=== PATIENT | male | born 2000 | race African-American/Black ===

== ENCOUNTER 2023-11-06 10:27 | Inpatient (IN) | payer OTHER ==
[~2023-11-06] VITALS: Ht 172.7 cm; Wt 59.3 kg
[2023-11-06] MEDS ORDERED: WELLTAB38 PO (10:55)
[2023-11-06] MEDS ORDERED: LEXA1TAB2 PO (10:55)
[2023-11-06] MEDS ORDERED: ZYPR2.5T2 PO (10:55)
[2023-11-06 11:26] LABS: HEMATOCRIT 47.9 % (42.0-52.0); HEMOGLOBIN 16.2 g/dl (13.5-17.5); MEAN CORPUSCULAR HEMOGLOBIN 29.7 pg (27.0-33.0); MEAN CORPUSCULAR HGB CONC 33.8 g/dl (32.0-36.5); MEAN CORPUSCULAR VOLUME 87.7 fl (80.0-96.0); PLATELET COUNT, AUTOMATED 268 10^3/uL (150-450); RED BLOOD COUNT 5.46 10^6/uL (4.30-6.10); WHITE BLOOD COUNT 4.3 10^3/uL (4.0-10.0)
[2023-11-06 11:55] LABS: ETHYL ALCOHOL (ETHANOL) < 0.003 % (0.000-0.010)
[2023-11-06 11:57] LABS: ALBUMIN 4.7 G/DL (3.2-5.2); ALKALINE PHOSPHATASE 74 U/L (46-116); ALT/SGPT 37 U/L (7.0-40); AST/SGOT 22 U/L (<34); BILIRUBIN,DIRECT 0.7 MG/DL (<0.4); BILIRUBIN,TOTAL 1.7 MG/DL (0.3-1.2); BLOOD UREA NITROGEN 11 MG/DL (9-23); CALCIUM LEVEL 9.8 MG/DL (8.5-10.1); CARBON DIOXIDE LEVEL 30 MMOL/L (20-31); CHLORIDE LEVEL 103 MMOL/L (98-107); CREATININE FOR GFR 0.71 MG/DL (0.70-1.30); GLOMERULAR FILTRATION RATE > 60.0 (>60); GLUCOSE, FASTING 89 MG/DL (60-100); POTASSIUM SERUM 3.6 MMOL/L (3.5-5.1); SODIUM LEVEL 138 MMOL/L (136-145); TOTAL PROTEIN 7.8 G/DL (5.7-8.2)
[2023-11-06 11:59] LABS: THYROID STIMULATING HORMONE 1.132 uIU/ML (0.55-4.78)
[2023-11-06 12:00] LABS: SALICYLATE LEVEL < 3.0 MG/DL (<30)
[2023-11-06] MEDS ORDERED: MAALOX 30 ML SUSP *UDC PO PRN (13:05)
[2023-11-06] MEDS ORDERED: MOM 30ML SUSPENSION UDC PO PRN (13:05)
[2023-11-06] MEDS ORDERED: IBUPROFEN 400MG TAB PO PRN (13:05)
[2023-11-06 13:08] LABS: AMPHETAMINES LEVEL URINE NEGATIVE (NEGATIVE); BARBITURATES URINE NEGATIVE (NEGATIVE); BENZODIAZEPINES URINE NEGATIVE (NEGATIVE); COCAINE METABOLITE URINE NEGATIVE (NEGATIVE); METHADONE URINE NEGATIVE (NEGATIVE); OPIATES URINE NEGATIVE (NEGATIVE); PHENCYCLIDINE URINE NEGATIVE (NEGATIVE)
[2023-11-06 13:09] LABS: CANNABINOIDS URINE NEGATIVE (NEGATIVE)
[2023-11-06] MEDS ORDERED: HOME MED LIST COMPLETE! XX SCH (14:05)
[2023-11-06 15:13] VITALS: BP 109/70; TEMP 98; O2SAT 96
[2023-11-07 06:22] VITALS: BP 112/59; TEMP 98.2; O2SAT 100
[2023-11-07] MEDS: buPROPion **XL** TABLET 150MG (WELLBUTRIN XL) PO SCH (11:00)
[2023-11-07] MEDS: ESCITALOPRAM OXALATE 10 MG TAB (LEXAPRO) PO SCH (11:01)
[2023-11-07 17:26] VITALS: BP 126/78; TEMP 97
[2023-11-07 21:28] VITALS: BP 172/98
[2023-11-07] MEDS: OLANZapine 5 MG TAB PO SCH (22:09)
[2023-11-07] MEDS: diphenhydrAMINE 25MG CAP PO PRN (22:10)
[2023-11-07] MEDS: ACETAMINOPHEN TAB 650MG DOSE (2X325MG) PO PRN (22:10)
[2023-11-07 22:24] VITALS: BP 142/92; TEMP 98; O2SAT 97
[2023-11-08 06:23] VITALS: BP 97/56; TEMP 97.8; O2SAT 93
[2023-11-08 08:49] VITALS: BP 110/84; TEMP 98.5; O2SAT 100
[2023-11-08 11:21] VITALS: BP_SYST 126; BP_SYST 128; BP_SYST 131; BP_DIAS 76; BP_DIAS 79; BP_DIAS 85
[2023-11-08] MEDS ORDERED: ONDANSETRON 4MG ORAL DISINTEGRATING TAB SL SCH (12:00)
[2023-11-08] MEDS ORDERED: ONDANSETRON 4MG ORAL DISINTEGRATING TAB SL PRN (12:30)
[2023-11-08] MEDS ORDERED: PINK BISMUTH SUSP 524MG/30ML ORAL SYRINGE PO PRN (14:35)
[2023-11-08 17:31] VITALS: BP 155/72; TEMP 97.3; O2SAT 100
[2023-11-08] MEDS: traZODone 50 MG TAB PO PRN (23:34)
[2023-11-09 06:18] VITALS: BP 116/69; TEMP 98.6; O2SAT 99
[2023-11-09 07:41] LABS: CHOLESTEROL RISK RATIO 3.12 (<5); HDL CHOLESTEROL 48.9 MG/DL (>40); LDL CHOLESTEROL 93.5 MG/DL (<100); NON-HDL-C 104.1 MG/DL
[2023-11-09 16:17] VITALS: BP 117/72; TEMP 97.9; O2SAT 100
[2023-11-10 06:12] VITALS: BP 111/60; TEMP 97.8; O2SAT 100
[2023-11-10 08:57] VITALS: BP 111/60; TEMP 97.8; O2SAT 100
[2023-11-10 15:41] VITALS: BP 123/77; TEMP 97.9; O2SAT 100
[2023-11-11 06:28] VITALS: BP 109/57; TEMP 98.7
[2023-11-11 15:57] VITALS: BP 137/94; TEMP 97.6; O2SAT 99
[2023-11-12 06:34] VITALS: BP 107/59; TEMP 98.2; O2SAT 100
[2023-11-12 16:37] VITALS: BP 129/80; TEMP 97.9; O2SAT 99
[2023-11-13 06:17] VITALS: BP 123/59; TEMP 98.2; O2SAT 100
[2023-11-13 15:58] VITALS: BP 104/60; TEMP 96.9
[2023-11-14 06:50] VITALS: BP 125/65; TEMP 98.1; O2SAT 95
[2023-11-14] MEDS ORDERED: LEXA1TAB2 PO (09:43)
[2023-11-14] MEDS ORDERED: WELLTAB38 PO (09:43)
== END 2023-11-14 11:39 | disposition home or self-care (01) | DRG 885 ==
LOC: M ED 10:27 → M ED INP 14:05 → M PSY 14:52
PROVIDERS: ADMIT Student in an Organized Health Care Education/Training Program; ATTEND Student in an Organized Health Care Education/Training Program
DX: F33.1 Major depressive disorder, recurrent, moderate (principal); R45.851 Suicidal ideations; F41.9 Anxiety disorder, unspecified; F60.1 Schizoid personality disorder; F60.2 Antisocial personality disorder; F17.290 Nicotine dependence, other tobacco product, uncomplicated; Z79.899 Other long term (current) drug therapy; E78.2 Mixed hyperlipidemia